=== PATIENT | female | born 1940 | race Caucasian/White ===

== ENCOUNTER → 2016-08-26 | Outpatient (CLI) | payer OTHER | END | disposition home or self-care (01) | DX: R26.2 Difficulty in walking, not elsewhere classified (principal); M17.11 Unilateral primary osteoarthritis, right knee; M25.661 Stiffness of right knee, not elsewhere classified; M25.561 Pain in right knee; M62.81 Muscle weakness (generalized) | CPT/HCPCS: 97110 GP; 97150 GO; 97161 GP; 97165 GO; G8978 GP; G8979 GP; G8980 GP; G8987 GO; G8988 GO; G8989 GO ==

== ENCOUNTER 2016-09-15 08:52 | Inpatient (IN) | payer OTHER ==
[~2016-09-15] VITALS: Ht 163.8 cm; Wt 87.5 kg
[~2016-09-15 08:52] MED LIST: ALDACTONE25 MG PO; CENTRUM SILVER1 EAC3 PO; DEXILANT60 MG PO; FIBER500 MG PO; FISH OIL300 MG PO; IMDUR30 MG PO; LASIX20 MG PO; LINZESS145 MCG PO; PRESERVISION A1 EAC2 PO; RED YEAST RICE600 MG PO; STOOL SOFTENER100 MG PO; TENORMIN25 MG PO; XYZAL5 MG PO
[2016-09-15] MEDS ORDERED: ERGOCALCIF50000 UNIT PO (10:15)
[2016-09-15 10:20] VITALS: BP 143/69
[2016-09-15 14:04] LABS: HEMATOCRIT 34.1 % (36.0-46.0); MCH 31.2 PG (29.0-34.0); MCHC 32.3 G/DL (30.0-36.0); MCV 96.6 FL (83-99); MEAN PLAT.VOLUME 11.1 uM^3 (9.5-12.4); RBC DIS.WIDTH-CV 12.8 % (11.8-14.6); RBC DIS.WIDTH-SD 45.1 % (39-53); RED BLOOD COUNT 3.53 M/uL (3.80-5.20); WHITE BLOOD COUNT 7.1 K/uL (4.1-10.2)
[2016-09-15 14:11] LABS: PLATELET COUNT 213 K/uL (156-360)
[2016-09-15 14:33] VITALS: BP 143/68
[2016-09-15 15:29] VITALS: BP 173/74
[2016-09-15 20:05] VITALS: BP 131/60
[2016-09-16] VITALS (7 sets, daily range): BP systolic 132–164; BP diastolic 63–72
[2016-09-16 06:11] LABS: HEMATOCRIT 36.8 % (36.0-46.0); MCV 92.9 FL (83-99)
[2016-09-16 06:46] LABS: ANION GAP 8 MEQ/L (2-14); CHLORIDE 99 MEQ/L (99-109); GFR ESTIMATE (CALCULATED) > 59 mL/min/; GLUCOSE 146 mg/dL (70-99); POTASSIUM 3.9 MEQ/L (3.7-5.4); SAMPLE HEMOLYSIS CHECK 0; SAMPLE ICTERIC CHECK 0; SAMPLE LIPEMIA CHECK 0; SODIUM 135 MEQ/L (136-147); UREA NITROGEN (BUN) 16 mg/dL (9-23)
[2016-09-17 04:20] VITALS: BP 144/67
[2016-09-17 06:26] LABS: HEMATOCRIT 35.1 % (36.0-46.0); MCV 94.1 FL (83-99)
[2016-09-17 06:43] LABS: ANION GAP 10 MEQ/L (2-14); CHLORIDE 100 MEQ/L (99-109); GFR ESTIMATE (CALCULATED) > 59 mL/min/; GLUCOSE 111 mg/dL (70-99); POTASSIUM 4.1 MEQ/L (3.7-5.4); SAMPLE HEMOLYSIS CHECK 0; SAMPLE ICTERIC CHECK 0; SAMPLE LIPEMIA CHECK 0; SODIUM 137 MEQ/L (136-147); UREA NITROGEN (BUN) 14 mg/dL (9-23)
[2016-09-17 08:22] VITALS: BP 115/15
[2016-09-17 12:14] VITALS: BP 110/62
[2016-09-17] MEDS ORDERED: LOVENOX40 MG/0.4 SC (14:35)
[2016-09-17] MEDS ORDERED: ENDOCET 5-3251 EACH PO (14:35)
[2016-09-17 15:55] VITALS: BP 133/65
== END 2016-09-17 17:31 | DRG 470 ==
LOC: 2SOUTH 08:52 → 3WEST 14:23
PROVIDERS: Orthopaedic Surgery; Physician Assistant
PROC: 0SRC0J9 Replacement of Right Knee Joint with Synthetic Substitute, Cemented, Open Approach (ICD-10-PCS; principal; 2016-09-15)
DX: M17.11 Unilateral primary osteoarthritis, right knee (principal); I42.9 Cardiomyopathy, unspecified; E78.5 Hyperlipidemia, unspecified; I10 Essential (primary) hypertension; K21.9 Gastro-esophageal reflux disease without esophagitis; I25.10 Atherosclerotic heart disease of native coronary artery without angina pectoris; Z88.1 Allergy status to other antibiotic agents; Z88.2 Allergy status to sulfonamides
CPT/HCPCS: 73560; 80048; 85014; 85018; 85027; 97530 GP; C1713; J1100; J1170; J1650; J2175; J2250; J2405; J7050; J7120